=== PATIENT | male | born 1995 | race Caucasian/White ===

== ENCOUNTER 2018-12-10 07:49 | Outpatient (CLI) | payer BC ==
--- NOTE | 2018-12-10 09:06 | MRI ---
MR of the lumbar spine without contrast INDICATION: Lumbar radiculopathy COMPARISON: None FINDINGS: There is diffuse intermediate to low signal intensity involving the bone marrow of the lumb osacral spine. The conus seen to terminate approximately L1. The visualized retroperitoneum and paravertebral soft tissues appear within normal limits. At L5-S1, there is a broad-based bulge with a small superimposed central protrusion. No definite cent ral canal or neural foraminal narrowing is evident. At L4-5, there is a broad-based bulge with a superimposed central to right paracentral disc protrusio n. The protrusion causes mild narrowing of the right lateral recess without definite impingement of the traversing right L5 nerve root. At L3-4, there is a broad-based bulge with a superimposed right paracentral protrusion. There is no a ppreciable central canal or neural foraminal narrowing. At L2-3, there is no appreciable central canal or neural foraminal narrowing. At L1-L2, there is no appreciable central canal or neural foraminal narrowing. IMPRESSION: Multilevel spondylosis of the lumbar spine most pronounced at L3-4 through L5-S1. There i s a right paracentral disc protrusion at L4-5 causing mild right lateral recess narrowing without definite impingement of the traversing right L5 nerve root. Diffuse intermediate to low signal intensity of the bone marrow can be seen with red marrow hyperplas ia. Infiltrative process is felt to be unlikely. This can be seen with patients with chronic anemia, smoking or obesity. Recommend correlation with the patient's CBC.
== END 2018-12-10 07:50 | disposition home or self-care (01) ==
LOC: TBSIIMAG 07:49
PROVIDERS: ATTEND Neurological Surgery
DX: M51.16 Intervertebral disc disorders with radiculopathy, lumbar region (principal); M47.26 Other spondylosis with radiculopathy, lumbar region; M47.817 Spondylosis without myelopathy or radiculopathy, lumbosacral region; M48.061 Spinal stenosis, lumbar region without neurogenic claudication; R93.7 Abnormal findings on diagnostic imaging of other parts of musculoskeletal system
CPT/HCPCS: 72148